=== PATIENT | male | born 1995 ===

== ENCOUNTER 2018-10-14 14:58 | Outpatient (CLI) | payer OTHER ==
[~2018-10-14] VITALS: Ht 170.2 cm; Wt 67.1 kg
== END 2018-10-14 15:15 | disposition home or self-care (01) ==
LOC: OFIC 805 14:58
DX: J30.89 Other allergic rhinitis (principal); H91.8X2 Other specified hearing loss, left ear; H69.83 Other specified disorders of Eustachian tube, bilateral